=== PATIENT | female | born 1955 | race Caucasian/White ===

== ENCOUNTER → 2024-05-07 07:05 | Outpatient (REF) | payer MEDICARE, OTHER, SELFPAY ==
[2024-05-07 07:48] VITALS: BMI 28.0
[2024-05-07 08:59] LABS: Hematocrit 39.7 % (37.0-47.0); Hemoglobin 13.8 g/dL (12.0-16.0); Mean Corp Hgb Conc. 34.8 g/dL (33.0-37.0); Mean Corpuscular Hgb 32.9 pg (27.0-31.0); Mean Corpuscular Volume 94.7 fL (81.0-99.0); Mean Platelet Volume 9.3 fL (7.4-10.4); Platelet Count 199 10^3/uL (130-400); Red Blood Cell Count 4.19 10^6/uL (4.20-5.40); Red Cell Dist. Width 12.2 % (11.5-14.5); White Blood Cell Count 5.3 10^3/uL (4.8-10.8)
[2024-05-07 09:20] LABS: Blood Urea Nitrogen 19 mg/dl (7-17); Calcium 9.8 mg/dl (8.4-10.2); Carbon Dioxide 26 mmol/L (22-30); Chloride 103 mmol/L (98-107); Estimated Creatinine Clearance 57 ml/min; Glucose 96 mg/dl (70-99); Sodium 140 mmol/L (135-145); eGFR > 60.00
[2024-05-07 09:25] LABS: Potassium 3.9 mmol/L (3.5-5.1)
== END ==
LOC: SDSPAT 07:05
PROVIDERS: ATTENDING PHYSICIAN Obstetrics & Gynecology; FAMILY PHYSICIAN Internal Medicine
DX: Z01.818 Encounter for other preprocedural examination (principal)
CPT/HCPCS: 36415; 80048; 85027; 86850; 86900; 86901; 93005

== ENCOUNTER 2024-05-14 05:59 | Day surgery (SDC) | payer MEDICARE, OTHER, SELFPAY ==
[2024-05-14] VITALS (13 sets, daily range): BP systolic 99–130; BP diastolic 52–70; BMI 27.8
[2024-05-14] MEDS: Pyridium 200 MG PO (07:12)
[2024-05-14] MEDS: HEPARIN 5000 UNITS SC (07:12)
[2024-05-14] MEDS: NORMOSOL-R 1000 IV (07:20)
[2024-05-14] MEDS: ZOFRAN 4 MG IV (11:05)
== END 2024-05-14 15:15 | disposition home or self-care (01) ==
LOC: SDS 05:59
PROVIDERS: ATTENDING PHYSICIAN Obstetrics & Gynecology; FAMILY PHYSICIAN Internal Medicine
DX: N99.3 Prolapse of vaginal vault after hysterectomy (principal); N39.3 Stress incontinence (female) (male); Y83.8 Other surgical procedures as the cause of abnormal reaction of the patient, or of later complication, without mention of misadventure at the time of the procedure; N36.41 Hypermobility of urethra
CPT/HCPCS: 57425; 57288; 86900; 86901; C1763; C1771; J1580

== ENCOUNTER → 2024-08-09 16:37 | Outpatient (REF) | payer MEDICARE, OTHER, SELFPAY ==
[2024-08-09 17:12] LABS: Urine Albumin Trace (Neg - Trace); Urine Bilirubin Negative (Negative); Urine Character Clear (Clear); Urine Color Straw; Urine Glucose Negative (Negative); Urine Ketone Negative (Negative); Urine Leukocyte 1+ (Negative); Urine Nitrite Negative (Negative); Urine Occult Blood 4+ (Negative); Urine Urobilinogen Negative (Neg - 1+)
[2024-08-09 17:30] LABS: Urine Red Blood Cell 0-2 /HPF (0-2); Urine Squamous Cell 0-2 /LPF (Few)
[2024-08-09 17:32] LABS: Urine White Cell 30-40 /HPF (0-5)
[2024-08-09 17:33] LABS: Urine Bacteria Few (Negative)
== END ==
LOC: REG 16:37
PROVIDERS: ATTENDING PHYSICIAN Obstetrics & Gynecology; FAMILY PHYSICIAN Internal Medicine
DX: N39.0 Urinary tract infection, site not specified (principal)
CPT/HCPCS: 81003; 81015; 87077; 87086; 87186